=== PATIENT | male | born 1950 | race Caucasian/White ===

== ENCOUNTER 2019-09-26 15:37 | Emergency (ER) | payer MEDICARE ==
[2019-09-26] MEDS ORDERED: Sodium Chloride 0.9% 10 ML Syringe FLUSH PRN (16:27)
--- NOTE | 2019-09-26 16:42 | EDM.PDOC ---
ED HPI GENERAL MEDICAL PROBLEM - General Chief Complaint: Cardiovascular Problem Stated Complaint: MEDICAL Time Seen by Provider: 09/26/19 16:25 Source of Information: Reports: Patient, Old Records History Limitations: Reports: Other (incomplete records) - History of Present Illness INITIAL COMMENTS - FREE TEXT/NARRATIVE: 68 yo male is sent over from the clinic for severe diarrhea. Has been having some diarrhea for months, but it got a lot worse in the last day or so. No nausea or vomiting. Says his stool was tested about 3 weeks and nothing was found. Is dizzy with standing and has dyspnea on exertion. The clinic thought he was in afib, but he is not. Is on Inflectra for his ulcerative colitis and a common side effect of this is diarrhea. Onset: Gradual (months, getting worse.) Duration: Chronic, Getting Worse Location: Reports: Abdomen (some cramping just before he has a BM) Quality: Reports: Other (cramps) Severity: Mild Improves with: Reports: Other (having a BM) Worsens with: Reports: Other (in the evenings most days) Context: Reports: Other (see HPI) Associated Symptoms: Reports: Malaise, Other (CALLE, light-headed). Denies: Nausea/Vomiting, Syncope Treatments RESOURCE MANAGEMENT SPECIALIST: Reports: Other (see below) (none) - Related Data Allergies Allergy/AdvReac Type Severity Reaction Status Date / Time No Known Allergies Allergy Verified 09/26/19 15:39 Home Meds: Home Meds Aspirin 325 mg PO DAILY 09/26/19 [History] Diphenoxylate HCl/Atropine [Lomotil] 1 tab PO Q6H PRN 09/26/19 [History] Fluticasone Propionate [Flonase] 1 spray IH BID 09/26/19 [History] Furosemide [Lasix] 20 mg PO DAILY 09/26/19 [History] Loperamide [Imodium] 2 mg PO QID PRN 09/26/19 [History] Metoprolol Tartrate 25 mg PO BID 09/26/19 [History] Mirtazapine [Remeron] 15 mg PO BEDTIME 09/26/19 [History] Nitroglycerin [Nitrostat] 0.4 mg SL ASDIRECTED 09/26/19 [History] Potassium Chloride 1 tab PO DAILY 09/26/19 [History] atorvaSTATin [Lipitor] 80 mg PO BEDTIME 09/26/19 [History] azaTHIOprine [Azathioprine] 2 tab PO DAILY 09/26/19 [History] levETIRAcetam [Keppra] 1,000 mg PO BID 09/26/19 [History] lisinopriL [Lisinopril] 1 tab PO DAILY 09/26/19 [History] predniSONE [Prednisone] 5 mg PO ASDIRECTED 09/26/19 [History] Past Medical History Cardiovascular History: Reports: Bypass, Heart Valve Replacement, High Cholesterol, Hypertension Musculoskeletal History: Reports: Arthritis, Back Pain, Chronic Neurological History: Reports: Concussion, Seizure Psychiatric History: Reports: Addiction - Infectious Disease History Infectious Disease History: Reports: Chicken Pox, Measles - Past Surgical History Cardiovascular Surgical History: Reports: Coronary Artery Bypass, Valve Replacement GI Surgical History: Reports: Hernia, Inguinal Social & Family History - Tobacco Use Smoking Status *Q: Former Smoker Years of Tobacco use: 35 Packs/Tins Daily: 1 Used Tobacco, but Quit: Yes Month/Year Tobacco Last Used: 06/2010 Second Hand Smoke Exposure: Yes - Caffeine Use Caffeine Use: Reports: Coffee - Recreational Drug Use Recreational Drug Use: No ED ROS GENERAL - Review of Systems Review Of Systems: See Below Constitutional: Reports: No Symptoms HEENT: Reports: No Symptoms Respiratory: Reports: No Symptoms Cardiovascular: Reports: Dyspnea on Exertion Endocrine: Reports: No Symptoms GI/Abdominal: Reports: Abdominal Pain (mild intermittent cramps), Diarrhea. Denies: Black Stool, Bloody Stool, Constipation, Distension, Flatus, Hematemesis , Hematochezia, Melena, Nausea, Vomiting : Reports: No Symptoms Musculoskeletal: Reports: No Symptoms Skin: Reports: No Symptoms Neurological: Reports: No Symptoms ED EXAM, GENERAL - Physical Exam Exam: See Below Exam Limited By: No Limitations General Appearance: Alert, WD/WN, No Apparent Distress Eye Exam: Bilateral Eye: Normal Inspection Ears: Normal External Exam, Normal Canal, Hearing Grossly Normal, Normal TMs Ear Exam: Bilateral Ear: Auricle Normal, Canal Normal, TM normal Nose: Normal Inspection, No Blood Throat/Mouth: Normal Inspection, Normal Lips, Normal Oropharynx, Normal Voice, No Airway Compromise Head: Atraumatic, Normocephalic Neck: Normal Inspection, Supple, Non-Tender Respiratory/Chest: No Respiratory Distress, Lungs Clear, Normal Breath Sounds, No Accessory Muscle Use Cardiovascular: Regular Rate, Rhythm, No Edema. No: Bradycardia, Tachycardia GI/Abdominal: Normal Bowel Sounds, Soft, Non-Tender, No Distention, Abnormal Bowel Sounds (increased). No: Distended, Guarding, Rigid, Rebound, Tender Back Exam: Normal Inspection. No: CVA Tenderness (R), CVA Tenderness (L) Extremities: Normal Inspection, Normal Range of Motion, Non-Tender, No Pedal Edema Neurological: Alert, Oriented, CN II-XII Intact, Normal Cognition, No Motor/ Sensory Deficits Psychiatric: Normal Affect, Normal Mood Skin Exam: Warm, Dry, Intact, No Rash, Pallor Course - Vital Signs Last Recorded V/S: Last Vital Signs Temp 36.2 C 09/26/19 16:17 Pulse 59 L 09/26/19 17:08 Resp 11 L 09/26/19 17:08 BP 131/62 09/26/19 17:08 Pulse Ox 99 09/26/19 17:08 - Orders/Labs/Meds Orders: Active Orders 24 hr Category Date Time Status Cardiac Monitoring [RC] .As Directed Care 09/26/19 15:46 Active Clostridium [CLOS DIFFICILE PCR W/REFLEX] [RM] Stat Lab 09/26/19 15:47 Ordered Sodium Chloride 0.9% [Normal Saline] 1,000 ml Med 09/26/19 16:48 Active IV .BOLUS Sodium Chloride 0.9% [Saline Flush] Med 09/26/19 16:27 Active 10 ml FLUSH ASDIRECTED PRN Saline Lock Insert [OM.PC] Routine Oth 09/26/19 16:27 Ordered Medication Orders Sodium Chloride (Normal Saline) 1,000 mls @ 1,000 mls/hr IV .BOLUS ONE Stop: 09/26/19 17:47 Last Admin: 09/26/19 17:07 Dose: 1,000 mls/hr Sodium Chloride (Saline Flush) 10 ml FLUSH ASDIRECTED PRN PRN Reason: Keep Vein Open Labs: Laboratory Tests 09/26/19 09/26/19 09/26/19 Range/Units 16:14 16:14 16:28 WBC 11.2 H (4.5-11.0) K/uL RBC 4.30 (4.30-5.90) M/uL Hgb 12.0 (12.0-15.0) g/dL Hct 38.2 L (40.0-54.0) % MCV 89 (80-98) fL MCH 28 (27-31) pg MCHC 31 L (32-36) % Plt Count 591 H (150-400) K/uL Sodium 129 L (140-148) mmol/L Potassium 5.2 (3.6-5.2) mmol/L Chloride 95 L (100-108) mmol/L Carbon Dioxide 24 (21-32) mmol/L Anion Gap 15.2 H (5.0-14.0) mmol/L BUN 21 H (7-18) mg/dL Creatinine 1.5 H (0.8-1.3) mg/dL Est Cr Clr Drug Dosing 43.71 mL/min Estimated GFR (MDRD) 47 L (>60) Glucose 158 H (74-106) mg/dL Calcium 9.4 (8.5-10.1) mg/dL Magnesium 1.7 L (1.8-2.4) mg/dL Troponin I 0.030 (0.000-0.056) ng/mL Meds: Medications Generic Name Dose Route Start Last Admin Trade Name Freq PRN Reason Stop Dose Admin Sodium Chloride 1,000 mls @ 1,000 mls/hr 09/26/19 16:48 09/26/19 17:07 Normal Saline IV 09/26/19 17:47 1,000 mls/hr .BOLUS ONE Administration Sodium Chloride 10 ml 09/26/19 16:27 Saline Flush FLUSH ASDIRECTED PRN Keep Vein Open Departure - Departure Time of Disposition: 18:05 Disposition: Home, Self-Care 01 Condition: Fair Clinical Impression: Hyponatremia, Medication side effect Diarrhea Qualifiers: Diarrhea type: unspecified type Qualified Code(s): R19.7 - Diarrhea, unspecified Referrals: PCP,None [Primary Care Provider] - Forms: ED Department Discharge Additional Instructions: Increase your loperamide to a maximum of 7 doses/day. Discuss with your provider the possibility that your Inflectra might be causing your diarrhea. Hold your potassium supplement until you talk to your doctor. Drink Gatorade to replace fluids and sodium. Return as needed. Sepsis Event Note - Evaluation Sepsis Screening Result: No Definite Risk - Focused Exam Vital Signs: Vital Signs Temp Pulse Resp BP Pulse Ox 09/26/19 17:08 59 L 11 L 131/62 99 01/09/20 16:17 36.2 C 63 9 L 142/63 H 97 09/26/19 16:04 36.2 C 63 9 L 142/63 H 97 Date Exam was Performed: 09/26/19 Time Exam was Performed: 17:46 - My Orders Last 24 Hours: My Active Orders 09/26/19 15:46 Cardiac Monitoring [RC] .As Directed 09/26/19 15:47 Clostridium [CLOS DIFFICILE PCR W/REFLEX] [RM] Stat 09/26/19 16:27 Sodium Chloride 0.9% [Saline Flush] 10 ml FLUSH ASDIRECTED PRN Saline Lock Insert [OM.PC] Routine 09/26/19 16:48 Sodium Chloride 0.9% [Normal Saline] 1,000 ml IV .BOLUS - Assessment/Plan Last 24 Hours: My Active Orders 09/26/19 15:46 Cardiac Monitoring [RC] .As Directed 09/26/19 15:47 Clostridium [CLOS DIFFICILE PCR W/REFLEX] [RM] Stat 09/26/19 16:27 Sodium Chloride 0.9% [Saline Flush] 10 ml FLUSH ASDIRECTED PRN Saline Lock Insert [OM.PC] Routine 09/26/19 16:48 Sodium Chloride 0.9% [Normal Saline] 1,000 ml IV .BOLUS
[2019-09-26] MEDS ORDERED: Sodium Chloride 0.9% 1,000 ML IV ONE (16:48)
== END 2019-09-26 18:28 | disposition home or self-care (01) ==
LOC: JP.ED 15:37
DX: E87.1 Hypo-osmolality and hyponatremia (principal); T50.905A Adverse effect of unspecified drugs, medicaments and biological substances, initial encounter; R19.7 Diarrhea, unspecified; I10 Essential (primary) hypertension; E78.00 Pure hypercholesterolemia, unspecified; G40.909 Epilepsy, unspecified, not intractable, without status epilepticus; Z79.82 Long term (current) use of aspirin; Z79.899 Other long term (current) drug therapy; Z87.891 Personal history of nicotine dependence
CPT/HCPCS: 36415; 80048; 83735; 84484; 85027; 87493; 96360; 99283; 99284; J7030

== ENCOUNTER 2021-12-02 15:35 | Day surgery (SDC) | payer MEDICARE ==
[2021-12-02] MEDS ORDERED: Sodium Chloride 0.9% 10 ML Syringe FLUSH PRN ×2 (15:49→16:21)
[2021-12-02] MEDS ORDERED: Sodium Chloride 0.9% 1,000 ML IV SCH (16:15)
[2021-12-02] MEDS ORDERED: Iopamidol 612 MG/ML 100 ML Bottle IV PRN (16:21)
[2021-12-02] MEDS ORDERED: Sodium Chloride 0.9% 75 ML IV ONE (16:21)
[2021-12-02] MEDS ORDERED: Piperacillin/Tazobactam 3.375 GM in Sodium Chloride 0.9% 50 ML IV SCH (18:00)
[2021-12-02] MEDS ORDERED: Bupivacaine 0.5% 50 ML MDV ONE (18:00)
[2021-12-02] MEDS ORDERED: Lidocaine 1% with EPINEPHrine 1:100,000 50 ML MDV ONE (18:00)
[2021-12-02] MEDS ORDERED: Propofol 200 MG/20 ML SDV ONE (18:10)
[2021-12-02] MEDS ORDERED: Rocuronium 50 MG/5 ML Vial ONE (18:10)
[2021-12-02] MEDS ORDERED: Neostigmine Methylsulfate 1 MG/ML 5 ML Syringe ONE (18:10)
[2021-12-02] MEDS ORDERED: Glycopyrrolate 0.2 MG/ML 5 ML MDV ONE (18:10)
[2021-12-02] MEDS ORDERED: Succinylcholine 200 MG/10 ML MDV ONE (18:10)
[2021-12-02] MEDS ORDERED: Dexamethasone 4 MG/ML SDV ONE (18:10)
[2021-12-02] MEDS ORDERED: Ondansetron 4 MG/2 ML SDV ONE (18:10)
[2021-12-02] MEDS ORDERED: fentaNYL 250 MCG/5 ML SDV ONE (18:12)
[2021-12-02] MEDS ORDERED: diphenhydrAMINE 50 MG/ML SDV IVPUSH PRN (18:41)
[2021-12-02] MEDS ORDERED: hydrOXYzine HCL 100 MG/2 ML SDV IM PRN (18:41)
[2021-12-02] MEDS ORDERED: Benzocaine/Cetylpyridinium/Menthol Lozenge MUCMEM PRN (18:41)
[2021-12-02] MEDS ORDERED: fentaNYL 100 MCG/2 ML SDV IVPUSH PRN (18:48)
[2021-12-02] MEDS ORDERED: Piperacillin/Tazobactam 3.375 GM in Sodium Chloride 0.9% 50 ML IV ONE (18:59)
[2021-12-02] MEDS ORDERED: Scopolamine 1.5 MG Transdermal Patch ONE (19:07)
[2021-12-02] MEDS ORDERED: Sugammadex Sodium 200 MG/2 ML VIAL ONE (19:08)
[2021-12-03] MEDS ORDERED: Piperacillin/Tazobactam 3.375 GM in Sodium Chloride 0.9% 50 ML IV SCH (02:00)
== END 2021-12-03 00:21 | disposition other institution (70) ==
LOC: JP.ED 15:35 → JP.SDS 18:42 → JP.ICU 19:58 → JP.SDS 12-03 00:21
PROVIDERS: ATTEND Surgery
DX: N49.3 Fournier gangrene (principal); I10 Essential (primary) hypertension; I25.10 Atherosclerotic heart disease of native coronary artery without angina pectoris; Z01.812 Encounter for preprocedural laboratory examination; Z20.822 Contact with and (suspected) exposure to COVID-19
CPT/HCPCS: 36415; 74177; 80048; 81001; 86140; 87040; 87070; 87075; 87077; 87186; 87205; 99282; 99285-25; A9270-GY; J0330; J1100; J2405; J2543; J2704; J2710; J3010; J3490; J7030; Q9967; U0002

== ENCOUNTER 2022-08-07 19:08 | Emergency (ER) | payer MEDICARE ==
[2022-08-07] MEDS ORDERED: Bacitracin Oint 1 GM U/D Packet TOP ONE (20:59)
== END 2022-08-07 21:19 | disposition home or self-care (01) ==
LOC: JP.ED 19:08
DX: S09.90XA Unspecified injury of head, initial encounter (principal); E78.00 Pure hypercholesterolemia, unspecified; I10 Essential (primary) hypertension; Z79.899 Other long term (current) drug therapy; Z79.82 Long term (current) use of aspirin; W01.10XA Fall on same level from slipping, tripping and stumbling with subsequent striking against unspecified object, initial encounter
CPT/HCPCS: 70450; 72125; 76377; 99284

== ENCOUNTER 2022-08-22 10:44 | Emergency (ER) | payer MEDICARE ==
[2022-08-22] MEDS ORDERED: Sodium Chloride 0.9% 10 ML Syringe FLUSH PRN (12:12)
[2022-08-22] MEDS ORDERED: Gadoteridol 279.3 MG/ML 20 ML SDV IV SCH (12:45)
== END 2022-08-22 14:40 | disposition home or self-care (01) ==
LOC: JP.ED 10:44
DX: F07.81 Postconcussional syndrome (principal); E78.00 Pure hypercholesterolemia, unspecified; I10 Essential (primary) hypertension; M19.90 Unspecified osteoarthritis, unspecified site; Z87.891 Personal history of nicotine dependence; Z79.899 Other long term (current) drug therapy; Z79.82 Long term (current) use of aspirin
CPT/HCPCS: 36415; 70553; 82565; 99284; A9579

== ENCOUNTER 2024-11-11 08:21 | Day surgery (SDC) | payer MEDICARE ==
[2024-11-11] MEDS ORDERED: Propofol 200 MG/20 ML SDV ONE (08:22)
[2024-11-11] MEDS ORDERED: fentaNYL 100 MCG/2 ML SDV ONE (08:22)
[2024-11-11] MEDS ORDERED: Midazolam 1 MG/ML 2 ML SDV ONE (08:23)
[2024-11-11] MEDS ORDERED: Bupivacaine 0.5% 30 ML SDV ONE (08:24)
[2024-11-11 08:48] LABS: HEMATOCRIT 43.2 % (38.4-49.7); HEMOGLOBIN 15.1 g/dL (12.9-16.9); MEAN CORPUSCULAR HEMOGLOBIN 32.7 pg (31.6-35.5); MEAN CORPUSCULAR VOLUME 93.5 fL (81.4-99.0); RED BLOOD CELL COUNT 4.62 M/uL (4.14-5.76); WHITE BLOOD CELL COUNT,WBC 6.4 K/uL (3.2-11.0)
[2024-11-11] MEDS: Nozin Nasal Sanitizer NASBOTH ONE (08:52)
[2024-11-11 09:09] LABS: ALANINE AMINOTRANSFERASE,ALT 34 U/L (12-78); ALBUMIN 3.8 g/dL (3.4-5.0); ALKALINE PHOSPHATASE 80 U/L (46-116); ANION GAP 12.4 mmol/L (5.0-14.0); ASPARTATE AMNIOTRANSFERASE,AST 29 U/L (15-37); BILIRUBIN TOTAL 0.6 mg/dL (0.2-1.0); BLOOD UREA NITROGEN,BUN 24 mg/dL (7-18); CALCIUM 10.3 mg/dL (8.5-10.1); CARBON DIOXIDE,CO2 24 mmol/L (21-32); CHLORIDE,CL 107 mmol/L (100-108); CREATININE 1.1 mg/dL (0.8-1.3); EST CRCL DRUG DOSING (CG) 56.75 mL/min; ESTIMATED GFR 71 mL/min (>60); GLUCOSE RANDOM 116 mg/dL (74-106); POTASSIUM,K 4.4 mmol/L (3.6-5.2); PROTEIN TOTAL,TP 7.7 g/dL (6.4-8.2); SODIUM,NA 139 mmol/L (140-148)
[2024-11-11] MEDS: Lactated Ringers 1,000 ML IV SCH (09:16)
[2024-11-11] MEDS ORDERED: ceFAZolin 2 GM in Premix Bag 1 BAG IV ONE (09:30)
== END 2024-11-11 09:47 | disposition home or self-care (01) ==
LOC: JP.SDS 08:21
PROVIDERS: ATTEND Specialist
DX: Z53.8 Procedure and treatment not carried out for other reasons (principal)
CPT/HCPCS: 36415; 80053; 85027; 93005; 93010; A9270; J7120; J0665; J2250; J2704; J3010

== ENCOUNTER 2025-03-12 08:53 | Day surgery (SDC) | payer MEDICARE ==
[~2025-03-12 08:53] MED LIST: Bupivacaine 0.5% 50 ML MDV ONE
[2025-03-12] MEDS ORDERED: Albuterol 6.7 GM Inhaler INH PRN (09:32)
[2025-03-12] MEDS ORDERED: Ipratropium 0.02% 0.5 MG/2.5 ML Neb Soln INH PRN (09:33)
[2025-03-12 09:34] LABS: HEMATOCRIT 43.5 % (38.4-49.7); HEMOGLOBIN 14.7 g/dL (12.9-16.9); MEAN CORPUSCULAR HEMOGLOBIN 32.6 pg (31.6-35.5); MEAN CORPUSCULAR HGB CONC 33.8 g/dL (31.6-35.5); MEAN CORPUSCULAR VOLUME 96.5 fL (81.4-99.0); RED BLOOD CELL COUNT 4.51 M/uL (4.14-5.76); WHITE BLOOD CELL COUNT,WBC 6.1 K/uL (3.2-11.0)
[2025-03-12] MEDS ORDERED: oxyCODONE 5 MG Tab PO PRN ×2 (09:34)
[2025-03-12] MEDS ORDERED: Ketorolac 15 MG/ML SDV IVPUSH PRN (09:35)
[2025-03-12] MEDS: Nozin Nasal Sanitizer NASBOTH SCH (09:35)
[2025-03-12] MEDS: Lactated Ringers 1,000 ML IV SCH (09:35)
[2025-03-12] MEDS ORDERED: Ondansetron 4 MG/2 ML SDV IVPUSH PRN (09:35)
[2025-03-12] MEDS ORDERED: Docusate Sodium 100 MG Cap PO PRN (09:35)
[2025-03-12] MEDS ORDERED: Nitroglycerin 0.4 MG Tab.SL SL PRN (09:45)
[2025-03-12] MEDS ORDERED: Acetaminophen 325 MG Tab PO SCH (09:45)
[2025-03-12] MEDS ORDERED: Sodium Chloride 0.9% 1,000 ML IV SCH (09:45)
[2025-03-12 09:50] LABS: CALCIUM 10.5 mg/dL (8.5-10.1); CREATININE 1.2 mg/dL (0.8-1.3); EST CRCL DRUG DOSING (CG) 52.02 mL/min; POTASSIUM,K 4.5 mmol/L (3.6-5.2)
[2025-03-12 09:51] LABS: ANION GAP 16.5 mmol/L (5.0-14.0)
[2025-03-12] MEDS: Albuterol/Ipratropium 3.0-0.5 MG/3 ML Neb Soln NEB ONE (10:22)
[2025-03-12] MEDS ORDERED: fentaNYL 250 MCG/5 ML SDV ONE (10:55)
[2025-03-12] MEDS ORDERED: Ondansetron 4 MG/2 ML SDV ONE (10:56)
[2025-03-12] MEDS ORDERED: Propofol 200 MG/20 ML SDV ONE (10:56)
[2025-03-12] MEDS ORDERED: Rocuronium 50 MG/5 ML Vial ONE (10:56)
[2025-03-12] MEDS ORDERED: Dexamethasone 4 MG/ML SDV ONE (10:56)
[2025-03-12] MEDS ORDERED: Neostigmine Methylsulfate 10 MG/10 ML MDV ONE (10:56)
[2025-03-12] MEDS ORDERED: Glycopyrrolate 0.2 MG/ML 5 ML MDV ONE (10:56)
[2025-03-12] MEDS: ceFAZolin 2 GM in Premix Bag 1 BAG IV ONE (12:24)
[2025-03-12] MEDS: Tranexamic Acid 860 MG in Sodium Chloride 0.9% 50 ML IV ONE (12:40)
[2025-03-12] MEDS ORDERED: ceFAZolin 2 GM in Premix Bag 1 BAG IV SCH (20:00)
[2025-03-12] MEDS ORDERED: Nozin Nasal Sanitizer NASBOTH SCH (21:00)
[2025-03-12] MEDS ORDERED: atorvaSTATin 20 MG Tab PO SCH (21:00)
[2025-03-12] MEDS ORDERED: guaiFENesin 600 MG Tab.ER PO SCH (21:00)
[2025-03-12] MEDS ORDERED: levETIRAcetam 250 MG Tab PO SCH (21:00)
[2025-03-12] MEDS ORDERED: Formoterol/Mometasone 100-5 MCG 8.8 GM Inhaler IH SCH (21:00)
[2025-03-12] MEDS ORDERED: Mirtazapine 15 MG Tab PO SCH (21:00)
[2025-03-12] MEDS ORDERED: Sacubitril/Valsartan 24 MG-26 MG Tab PO SCH (21:00)
[2025-03-13] MEDS ORDERED: Spironolactone 25 MG Tab PO SCH (09:00)
[2025-03-13] MEDS ORDERED: Furosemide 20 MG Tab PO SCH (09:00)
[2025-03-13] MEDS ORDERED: Metoprolol Succinate 25 MG Tab.ER PO SCH (09:00)
[2025-03-13] MEDS ORDERED: Aspirin 325 MG Tab.EC PO SCH (09:00)
[2025-03-13] MEDS ORDERED: Ezetimibe 10 MG Tab PO SCH (09:00)
== END 2025-03-12 14:00 | disposition home or self-care (01) ==
LOC: JP.SDS 08:53
PROVIDERS: ATTEND Specialist
DX: M16.11 Unilateral primary osteoarthritis, right hip (principal); I25.10 Atherosclerotic heart disease of native coronary artery without angina pectoris; I11.0 Hypertensive heart disease with heart failure; I50.40 Unspecified combined systolic (congestive) and diastolic (congestive) heart failure; E66.01 Morbid (severe) obesity due to excess calories; Z53.8 Procedure and treatment not carried out for other reasons; Z79.82 Long term (current) use of aspirin; Z79.899 Other long term (current) drug therapy
CPT/HCPCS: 36415; 80048; 85027; 93005; 93010; 94640; A9270; J0690; J3010; J7120; J0665; J1100; J1596; J2405; J2704; J2710; J3490

== ENCOUNTER 2025-08-25 09:34 | Inpatient (IN) | payer MEDICARE, OTHER ==
[2025-08-25 10:08] LABS: BASOPHILS ABSOLUTE AUTO 0.07 K/uL (0.00-0.10); BASOPHILS PERCENT AUTO 0.5 % (0.1-1.3); EOSINOPHILS ABSOLUTE AUTO 0.47 K/uL (0.00-0.40); EOSINOPHILS PERCENT AUTO 3.7 % (0.0-5.4); IMMATURE GRAN ABSOLUTE AUTO 0.17 K/uL (0.00-0.23); IMMATURE GRAN PERCENT AUTO 1.3 % (0.0-0.7); LYMPHOCYTES ABSOLUTE AUTO 3.01 K/uL (0.8-3.3); LYMPHOCYTES PERCENT AUTO 23.6 % (11.4-47.7); MONOCYTES ABSOLUTE AUTO 1.51 K/uL (0.20-0.90); MONOCYTES PERCENT AUTO 11.9 % (3.3-12.6); NEUTROPHILS ABSOLUTE AUTO 7.51 K/uL (1.0-7.6); NEUTROPHILS PERCENT AUTO 59.0 % (40.0-78.1); PLATELET COUNT,PLT 200 K/uL (130-375); RED BLOOD CELL COUNT 4.45 M/uL (4.14-5.76); WHITE BLOOD CELL COUNT,WBC 12.7 K/uL (3.2-11.0)
[2025-08-25 10:37] LABS: A/G RATIO 0.8 (1.2-2.2); ALANINE AMINOTRANSFERASE,ALT 43 U/L (12-78); ASPARTATE AMNIOTRANSFERASE,AST 30 U/L (15-37); BILIRUBIN TOTAL 0.4 mg/dL (0.2-1.0); BLOOD UREA NITROGEN,BUN 24 mg/dL (7-18); CARBON DIOXIDE,CO2 27 mmol/L (21-32); CHLORIDE,CL 105 mmol/L (100-108); CREATININE 1.1 mg/dL (0.8-1.3); EST CRCL DRUG DOSING (CG) 56.75 mL/min; ESTIMATED GFR 71 mL/min (>60); GLUCOSE RANDOM 115 mg/dL (74-106); POTASSIUM,K 3.4 mmol/L (3.6-5.2); PROTEIN TOTAL,TP 7.2 g/dL (6.4-8.2); SODIUM,NA 140 mmol/L (140-148)
[2025-08-25] MEDS: Furosemide 40 MG/4 ML VIAL IVPUSH ONE (10:50)
[2025-08-25] MEDS ORDERED: Ondansetron 4 MG Tab.DIS PO PRN (14:43)
[2025-08-25] MEDS ORDERED: guaiFENesin/Dextromethorphan 100-10 MG/5 ML Soln 10 ML Cup PO PRN (14:43)
[2025-08-25] MEDS ORDERED: Ondansetron 4 MG/2 ML SDV IV PRN (14:43)
[2025-08-25] MEDS ORDERED: Magnesium Hydroxide 400 MG/5 ML Susp 30 ML Cup PO PRN (14:43)
[2025-08-25] MEDS ORDERED: Sennosides/Docusate Sodium 50-8.6 MG Tab PO PRN (14:43)
[2025-08-25] MEDS: Lactobacillus Rhamnosus GG (Probiotic) Cap PO SCH (20:21)
[2025-08-25] MEDS: Formoterol/Mometasone 100-5 MCG 8.8 GM Inhaler INH SCH (20:22)
[2025-08-25 22:32] LABS: BLOOD UREA NITROGEN,BUN 29.0 mg/dL (7-18); CARBON DIOXIDE,CO2 31.0 mmol/L (21-32); CHLORIDE,CL 102.0 mmol/L (100-108); CREATININE 1.3 mg/dL (0.8-1.3); EST CRCL DRUG DOSING (CG) 48.02 mL/min; ESTIMATED GFR 58.0 mL/min (>60); GLUCOSE RANDOM 140.0 mg/dL (74-106); POTASSIUM,K 3.9 mmol/L (3.6-5.2); SODIUM,NA 141.0 mmol/L (140-148)
[2025-08-25 22:35] LABS: TROPONIN I HIGH SENSITIVITY 145.9 pg/mL (<=60.3)
[2025-08-26 05:46] LABS: PLATELET COUNT,PLT 182.0 K/uL (130-375); RED BLOOD CELL COUNT 4.28 M/uL (4.14-5.76); WHITE BLOOD CELL COUNT,WBC 9.4 K/uL (3.2-11.0)
[2025-08-26 06:10] LABS: BLOOD UREA NITROGEN,BUN 24.0 mg/dL (7-18); CARBON DIOXIDE,CO2 31.0 mmol/L (21-32); CHLORIDE,CL 104.0 mmol/L (100-108); CREATININE 1.0 mg/dL (0.8-1.3); EST CRCL DRUG DOSING (CG) 62.43 mL/min; ESTIMATED GFR 80.0 mL/min (>60); GLUCOSE RANDOM 121.0 mg/dL (74-106); POTASSIUM,K 3.6 mmol/L (3.6-5.2); SODIUM,NA 141.0 mmol/L (140-148)
[2025-08-26 06:16] LABS: TROPONIN I HIGH SENSITIVITY 121.1 pg/mL (<=60.3)
== END 2025-08-27 12:27 | disposition home or self-care (01) | DRG 202 ==
LOC: JP.ED 09:34 → JP.ICU 13:28
PROVIDERS: ADMIT Internal Medicine; ATTEND Internal Medicine
DX: J20.9 Acute bronchitis, unspecified (principal); I50.42 Chronic combined systolic (congestive) and diastolic (congestive) heart failure; G40.909 Epilepsy, unspecified, not intractable, without status epilepticus; H54.7 Unspecified visual loss; E78.00 Pure hypercholesterolemia, unspecified; I10 Essential (primary) hypertension; J45.909 Unspecified asthma, uncomplicated; M19.90 Unspecified osteoarthritis, unspecified site; M54.9 Dorsalgia, unspecified; G89.29 Other chronic pain; Z96.649 Presence of unspecified artificial hip joint; Z96.619 Presence of unspecified artificial shoulder joint; Z98.890 Other specified postprocedural states; Z95.5 Presence of coronary angioplasty implant and graft; Z79.899 Other long term (current) drug therapy; Z79.82 Long term (current) use of aspirin; Z87.891 Personal history of nicotine dependence
CPT/HCPCS: 36415; 80048; 80053; 83735; 83880; 84484; 85025; 85027; 86140; 87070; 87077; 87186; 87205; 93005; 93010; 94640; 99223; 99232; 99238; 99284; A9270-GY; J0696; J1938